=== PATIENT | male | born 1990 | race Caucasian/White ===

== ENCOUNTER 2020-07-10 03:41 | Inpatient (IN) | payer MEDICAID ==
[~2020-07-10] VITALS: Ht 180.3 cm; Wt 169.6 kg
[2020-07-10 03:42] VITALS: BP 153/88
[2020-07-10] MEDS ORDERED: OXCARBAZEPINE (03:46)
[2020-07-10 04:14] LABS: BE -0.5 mmol/L (-2 to +3); PCO2 43.9 mmHg (35.0-45.0); pH 7.372 (7.340-7.450)
[2020-07-10 04:15] LABS: ABSOLUTE BASOPHILS 0.1 thou/uL (0.0-0.2); ABSOLUTE EOSINOPHILS 0.3 thou/uL (0.0-0.7); ABSOLUTE LYMPHOCYTES 3.2 thou/uL (0.8-5.3); ABSOLUTE MONOCYTES 1.4 thou/uL (0.0-1.2); EOSINOPHILS 2.3 %; HEMOGLOBIN 14.5 gm/dL (14.0-18.0); MCHC 33.8 g/dL (28.0-37.0); MCV 88.6 fL (80.0-100.0); MONOCYTES 13.1 %; MPV 7.6 fl. (7.2-11.1); NUCLEATED RBCS 0 /100WBC; PLATELET COUNT* 376 thou/uL (150-400); PO2 54.7 mmHg (75.0-100.0); POLYS 54.6 %; RBC 4.85 mil/uL (4.50-6.00); RDW-CV 12.5 % (10.5-14.5); WBC 11.1 thou/uL (4.0-11.0)
[2020-07-10 04:24] LABS: CALCIUM 8.4 mg/dL (8.5-10.1); CREATININE 1.4 mg/dL (0.6-1.3); POTASSIUM 3.4 mmol/L (3.5-5.1)
[2020-07-10 04:28] LABS: APTT 22.1 Seconds (25.0-31.3); PROTIME 10.1 Seconds (9.20-11.50)
[2020-07-10 04:38] LABS: ALBUMIN 3.6 g/dL (3.4-5.0); TOTAL BILIRUBIN 0.3 mg/dL (<0.1-1.0); TOTAL PROTEIN 7.8 g/dL (6.4-8.2)
[2020-07-10 08:30] VITALS: BP 155/70
--- NOTE | 2020-07-10 09:54 | EKG ---
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 07/10/20 0954 0348 0348 Christiano Coleman MD, FAC /EPI
[2020-07-10 11:48] LABS: AMP/METHAMP Negative (Negative); BARBITURATES Negative (Negative); BENZODIAZEPINES Negative (Negative); COCAINE Negative (Negative); METHADONE Negative (Negative); OPIATES Negative (Negative); PCP Negative (Negative); THC POSITIVE (Negative)
[2020-07-10 13:13] VITALS: BP 111/58
[2020-07-10 16:00] VITALS: BP 107/66
[2020-07-10 20:00] VITALS: BP 107/64
[2020-07-11] VITALS: BP 131/76
[2020-07-11 04:00] VITALS: BP 143/78
[2020-07-11 04:26] LABS: ABSOLUTE BASOPHILS 0.1 thou/uL (0.0-0.2); ABSOLUTE EOSINOPHILS 0.2 thou/uL (0.0-0.7); ABSOLUTE LYMPHOCYTES 3.1 thou/uL (0.8-5.3); ABSOLUTE NEUTROPHILS 6.5 thou/uL (1.6-8.1); BASOPHILS 0.6 %; EOSINOPHILS 2.1 %; HEMATOCRIT 40.6 % (42.0-52.0); HEMOGLOBIN 13.7 gm/dL (14.0-18.0); LYMPHOCYTES 28.2 %; MCH 30.1 pg (26.0-34.0); MCHC 33.8 g/dL (28.0-37.0); MCV 89.2 fL (80.0-100.0); MONOCYTES 9.1 %; MPV 7.7 fl. (7.2-11.1); NUCLEATED RBCS 0 /100WBC; PLATELET COUNT* 313 thou/uL (150-400); RBC 4.55 mil/uL (4.50-6.00); RDW-CV 12.9 % (10.5-14.5); WBC 10.9 thou/uL (4.0-11.0)
[2020-07-11 04:51] LABS: CREATININE 1.3 mg/dL (0.6-1.3); POTASSIUM 4.3 mmol/L (3.5-5.1)
[2020-07-11 08:00] VITALS: BP 134/68
[2020-07-11] MEDS ORDERED: AUGMENTIN 875-1 EACH PO (10:42)
[2020-07-11 12:36] VITALS: BP 134/68
== END 2020-07-11 14:27 | disposition home or self-care (01) | DRG 917 ==
LOC: M.ERS 03:41 → M.TBA-ER 05:19 → M.2W 08:34
PROVIDERS: Internal Medicine; Personal Emergency Response Attendant; ADMIT Internal Medicine; ATTEND Internal Medicine
DX: T40.7X1A Poisoning by cannabis (derivatives), accidental (unintentional), initial encounter (principal); J18.9 Pneumonia, unspecified organism; J96.01 Acute respiratory failure with hypoxia; Z68.43 Body mass index [BMI] 50.0-59.9, adult; Z20.828 Contact with and (suspected) exposure to other viral communicable diseases; F31.9 Bipolar disorder, unspecified; F90.9 Attention-deficit hyperactivity disorder, unspecified type; G47.33 Obstructive sleep apnea (adult) (pediatric); F17.210 Nicotine dependence, cigarettes, uncomplicated; F12.90 Cannabis use, unspecified, uncomplicated; E66.01 Morbid (severe) obesity due to excess calories; Y92.89 Other specified places as the place of occurrence of the external cause; Z91.030 Bee allergy status; Z23 Encounter for immunization

== ENCOUNTER 2021-05-15 00:35 | Emergency (ER) | payer MEDICAID ==
[~2021-05-15] VITALS: Ht 180.3 cm; Wt 176.1 kg
[~2021-05-15 00:35] MED LIST: AUGMENTIN 875-1 EACH PO; OXCARBAZEPINE
[2021-05-15 00:39] VITALS: BP 134/77
[2021-05-15] MEDS ORDERED: ADDERALL 10 MG10 MG (00:44)
[2021-05-15] MEDS ORDERED: MAGIC MOUTHWASH SWISH&SPIT (01:29)
[2021-05-15] MEDS ORDERED: IBUPROFEN 800800 MG PO (01:29)
[2021-05-15] MEDS ORDERED: AMOXICILLIN875 MG PO (01:29)
== END 2021-05-15 02:04 | disposition home or self-care (01) ==
LOC: M.ERS 00:35
DX: H66.93 Otitis media, unspecified, bilateral (principal); Z20.822 Contact with and (suspected) exposure to COVID-19; J03.90 Acute tonsillitis, unspecified; F31.9 Bipolar disorder, unspecified; F90.9 Attention-deficit hyperactivity disorder, unspecified type; Z79.899 Other long term (current) drug therapy; Z91.030 Bee allergy status

== ENCOUNTER 2021-09-18 15:27 | Emergency (ER) | payer MEDICAID ==
[~2021-09-18] VITALS: Ht 180.3 cm; Wt 135.2 kg
[~2021-09-18 15:27] MED LIST changes: +ADDERALL 10 MG10 MG; +AMOXICILLIN875 MG PO; +IBUPROFEN 800800 MG PO; +MAGIC MOUTHWASH SWISH&SPIT
[2021-09-18 18:59] VITALS: BP 120/89
== END 2021-09-18 19:01 | disposition home or self-care (01) ==
LOC: M.ERS 15:27
DX: R51.9 Headache, unspecified (principal); Z20.822 Contact with and (suspected) exposure to COVID-19; F31.9 Bipolar disorder, unspecified; E66.01 Morbid (severe) obesity due to excess calories; Z79.899 Other long term (current) drug therapy; Z91.030 Bee allergy status